=== PATIENT | female | born 1980 | race Hispanic/Latino ===

== ENCOUNTER 2021-04-23 09:28 | Observation (INO) | payer SELFPAY ==
[~2021-04-23] VITALS: Ht 147.3 cm; Wt 71.0 kg
[~2021-04-23 09:28] MED LIST: ARTIFI TEARS OD; FLEXERIL10 MG PO; LEVOTHYROXIN88 MC1 PO; MEDDOSEPAK OR; NAPROXEN500 MG PO
--- NOTE | 2021-04-23 09:54 | NUR ---
PATIENT AMBULATES TO ROOM 9 THEN TO THE BATHROOM, STEADY GAIT UNASSISTED. AAOX4. NO DISTRESS. C/O BLOATING AND ABD DISCOMFORT SINCE YESTERDAY. URINE CUP PROVIDED.
--- NOTE | 2021-04-23 11:47 | NUR ---
PLAN DISCUSSED WITH PATIEENT BY THE MD REGARDING NEED FOR CT AND PLAN TO TRANSFER TO [facility] AND BACK. PATIENT AGREES.
[2021-04-23 11:55] LABS: HEMATOCRIT 36.6 % (37.0-47.0); HEMOGLOBIN 11.9 g/dl (12.0-16.0); IMMATURE GRANULOCYTES 0.4 % (0.0-5.0); MEAN CELL VOLUME 94.1 fL CALC (80.0-100.0); MEAN CORPUSCULAR HGB 30.6 pG CALC (26.0-32.0); MEAN CORPUSCULAR HGB CONC 32.5 g/dL CAL (32.0-36.0); NEUT# 13.17 thou/uL (2.00-7.15); RED BLOOD COUNT 3.89 mill/uL (4.20-5.60)
[2021-04-23 11:58] LABS: URINE BILIRUBIN - DIPSTICK NEGATIVE (NEGATIVE); URINE BLOOD DIPSTICK NEGATIVE (NEGATIVE); URINE COLOR YELLOW; URINE GLUCOSE - DIPSTICK NEGATIVE (NEGATIVE); URINE KETONE NEGATIVE (NEGATIVE); URINE LEUK ESTERASE NEGATIVE (NEGATIVE); URINE PROTEIN - DIPSTICK NEGATIVE (NEG-TRACE); URINE SPECIFIC GRAVITY <=1.005; URINE UROBILINOGEN - DIPSTICK 0.2 E.U./dL (0.2)
[2021-04-23 12:00] LABS: URINE NITRITE - DIPSTICK NEGATIVE (Negative)
[2021-04-23 12:05] LABS: AMYLASE 78 u/l (30-110); ANION GAP 13 (6-22 (CALC)); BUN 10 mg/dL (7-17); BUN/CREATININE RATIO 17 (12-20 (CALC)); CARBON DIOXIDE 24 mmol/l (22-30); CHLORIDE 103 mmol/l (95-108); CREATININE 0.6 mg/dL (0.5-1.0); GFR > 60 ML/MIN (>=60 (CALC)); GFR FOR AFR.AMER. > 60 ML/MIN (>=60 (CALC)); LIPASE 65 u/l (23-300); POTASSIUM 3.7 mmol/l (3.5-5.1); SGOT/AST 26 u/l (14-36); SODIUM 136 mmol/l (137-146); TOTAL PROTEIN 7.3 g/dL (6.3-8.2)
[2021-04-23 12:07] LABS: ALBUMIN 4.2 g/dL (3.2-5.0); ALKALINE PHOSPHATASE 81 u/l (38-126); BILIRUBIN, TOTAL 0.8 mg/dL (0.0-1.4)
--- NOTE | 2021-04-23 12:30 | NUR ---
PATIENT MEDICATED PER EMAR. IVF INFUSING TO LEFT AC. S/S OF ADVERSE REACTION TO ALL MEDICATION REVIEWED WELL THE USE. PATIENT VERBALIZED UNDERSTANDING. SIDE RAIL UP FOR SAFETY, CALL [place] IN REACH. WCTM.
--- NOTE | 2021-04-23 13:30 | NUR ---
PATIENT RESTING ON LEFT SIDE, EYES CLOSED, NAD NOTED. RESP EVEN AND UNLABORED. CONTINUING TO MONITOR.
--- NOTE | 2021-04-23 14:33 | NUR ---
PATIENT TO CT AT [facility] AT THIS TIME VIA TRANSPORT, AAOX4, NO DISTRESS NOTED.
--- NOTE | 2021-04-23 18:45 | NUR ---
PATIENT RETURNED FROM CT AT [facility], AAOX4, RESP EVEN AND UNLABORED. DENIES NEEDS AT THIS TIME. AWAITING RESULTS. VSS.
--- NOTE | 2021-04-23 19:15 | NUR ---
PLAN REVIEWED WITH PATIENT BY ER MD, ALL QUESTIONS ANSWERED. AWAITING OR TEAM.
--- NOTE | 2021-04-23 20:00 | NUR ---
ANESTHESIA NURSE AT BEDSIDE, LANGUAGE LINE USED FOR TRANSLATION REGARDING APPENDECTOMY.
--- NOTE | 2021-04-23 20:15 | NUR ---
FAMILY MEMBER AT BEDSIDE.
--- NOTE | 2021-04-23 20:50 | NUR ---
PATIENT LEFT TO THE OR WITH AN OR BI APPLICATION DEVELOPER. AAOX4, NO DISTRESS NOTED.
[2021-04-23 23:15] VITALS: BP 117/60
[2021-04-23 23:30] VITALS: BP 122/74
[2021-04-23 23:45] VITALS: BP 116/67
[2021-04-24] VITALS (7 sets, daily range): BP systolic 95–111; BP diastolic 46–65
--- NOTE | 2021-04-24 01:56 | NUR ---
RECEIVED PATIENT FROM THE OPERATING ROOM VIA STRETCHER IN STABLE CONDITION. LR INFUSING FROM THE OR. A/O x3. DENIES PAIN AT THIS TIME. HR REGULAR. ABD SOFT DISTENDED. 3 INCISIONS TO [id number] AND LOWER ABDOMEN. DERMABOND UTILIZED. EDGES WELL APPROXIMATED. NO REDNESS OR DRAINAGE NOTED. PATIENT WAS ABLE TO VOID UPON ENTERING ROOM. ABULATED WITH STANDBY ASSIST. O2 2L N/C IN PLACE. SCD ON ORDERED. LR INFUSING AT 75ML/HR. RECEIVED FIRST DOSE OF ZOSYN. BED IN LOW POSITION. CALL LIGHT WITHIN REACH.
--- NOTE | 2021-04-24 06:50 | NUR ---
EDUCATED PATIENT ON USE AND RATIONALE OF INSENTIVE SPIROMETER WITH A DEMONSTRATION FOR THIS NURSE TO OBSERVE. PATIENT CURRENTLY 1000. BED IN LOW POSITION. CALL LIGHT WITHIN REACH. IVF INFUSING. SCD IN PLACE.
--- NOTE | 2021-04-24 07:00 | NUR ---
PT REPORT RECEIVED FROM NIGHT NURSEEL
--- NOTE | 2021-04-24 08:00 | NUR ---
PT WAS FOUND RESTING IN BED IN SEMI-FOWLERS POSITION;PT IS A&OX3;VS AND ASSESSMENT WERE COMPLETED;PT IS REPORTING ABDOMINAL PAIN OF 2/10;PT WAS PREVIOUSLY MEDICATED @0600 WITH TORADOL 15MG IV;PT DECLINES ANY ADDITIONAL PAIN MEDICATION AT THIS TIME;HEART SOUNDS ARE REGULAR IN RATE AND RHYTHM;LUNG SOUNDS ARE CLEAR;RESPIRATIONS ARE EVEN AND UNLAOBORED ON O2@2L;ACTIVE ABDOMINAL SOUNDS PRESENT IN ALL QUADRANTS;PT INCISIONX3 ARE CLOSED WITH DERMABOND AND EDGES ARE WELL APPROXIMATED;SITES ARE FREE OF ANY REDDENING, WARMTH OR DRAINAGE AT THIS TIME;#20G IV IN RAC IS RUNNING LR@75 ML/HR;IV SITE APPEARS FREE OF COMPLICATIONS AT THIS TIME;PT HAS SCDS IN PLACE;NO EDEMA NOTED;IS @BEDSIDE;SAFETY PRECAUTIONS IN PLACE;CALL LIGHT WITHIN REACH;BED IN LOWEST POSITION;PT ENCOURAGED TO CALL WITH ANY NEEDS OR CONCERNS;WILL CONTINUE TO MONITOR.
[2021-04-24] MEDS ORDERED: PERCOCET 5/325M1 TAB PO (08:41)
--- NOTE | 2021-04-24 09:20 | NUR ---
AND ALYSSA RABAGO AT BEDSIDE DISCUSSING POC WITH PT
--- NOTE | 2021-04-24 12:07 | NUR ---
Discharge instructions given. Patient verbalizes understanding of same. Discharged in stable condition via Wheelchair to Home with family. All belongings sent with pt. DISCHARGE PACKET AND PRESCRIPTION WERE GIVEN TO PT;DISCHARGE INSTRUCTIONS AND MEDICATIONS WERE EXPLAINED TO PT;PT EXPRESSED UNDERSTANDING AND HAD NO FURTHER QUESTIONS;SIGNATURE WAS OBTAINED;IV WAS REMOVED WITH NO COMPLICATIONS AND CATHETER INTACT; PT WAS TRANSPORTED TO [facility] VIA IN STABLE CONDITION;ALL PT BELONGINGS WERE SENT WITH PT;PT WILL BE TRANSPORTED TO HOME WITH FAMILY.
== END 2021-04-24 12:07 | disposition home or self-care (01) | DRG 343 ==
LOC: ED 09:28 → ED-I 19:37 → ED 19:51 → MS2 19:52
PROVIDERS: Emergency Medicine; ADMIT Surgery; ATTEND Surgery
PROC: 0DTJ4ZZ Resection of Appendix, Percutaneous Endoscopic Approach (ICD-10-PCS; principal; 2021-04-23)
DX: K35.30 Acute appendicitis with localized peritonitis, without perforation or gangrene (principal); Z20.822 Contact with and (suspected) exposure to COVID-19
CPT/HCPCS: G0378; J0131; J2710; Q9967